=== PATIENT | male | born 1970 | race Caucasian/White ===

== ENCOUNTER 2018-01-10 18:51 | Observation (INO) ==
[2018-01-10 19:50] LABS: Bilirubin,Urine Negative (Negative); Blood,Urine Negative (Negative); Clarity,Urine Cloudy (Clear); Color,Urine Yellow (Yellow); Glucose,Urine (UA) Normal (Normal); Ketones,Urine Negative (Negative); Leukocyte Esterase,Urine Negative (Negative); Nitrite,Urine Negative (Negative); Protein,Urine Negative (Neg-Trace); Specific Gravity,Urine 1.009 (1.010-1.025); Urobilinogen,Urine Normal (Normal)
[2018-01-10 19:52] LABS: Hyaline Casts,Urine None Seen per lpf (None-Few); RBC,Urine 0-3 per hpf (0-3); Squamous Epithelial Cell,Urine Moderate per lpf (None-Few); WBC,Urine 0-3 per hpf (0-3)
[2018-01-10 19:52] LABS: Hematocrit 46.9 % (37.5-50.1); Mean Corpuscular HGB Conc 34.1 g/dL (31.6-35.5); Mean Corpuscular Hemoglobin 29.6 pg (28.0-33.3); Mean Corpuscular Volume 86.9 fL (83.0-100.0); Mean Platelet Volume 10.9 fL (9.4-12.4); Platelet Count 248 K/mcL (140-400); Red Cell Distribution Width 12.2 % (11.5-14.5)
[2018-01-10 20:06] LABS: Amorphous Sediment,Urine Few (Few)
[2018-01-10 20:07] LABS: Bacteria,Urine Few per hpf (None-Few)
--- NOTE | 2018-01-10 20:58 | Emergency Department Note ---
Disposition Clinical Impression: Elevated LFTs, Total bilirubin, elevated Cholelithiasis Qualifiers: Cholelithiasis location: gallbladder Cholecystitis presence: without cholecystitis Biliary obstruction: without biliary obstruction Qualified Code(s) : K80.20 - Calculus of gallbladder without cholecystitis without obstruction Abdominal pain Qualifiers: Abdominal location: epigastric Qualified Code(s): R10.13 - Epigastric pain Disposition: Admitted As Inpatient Condition: Good Time of Disposition: 04:13 Abdominal Pain HPI - General Chief Complaint: ED Abdominal Pain Stated Complaint: Severe ABD Pain Time Seen by Provider: 01/10/18 20:08 Source: patient Mode of arrival: ambulatory Limitations: no limitations Nursing Notes Reviewed: Yes Vital Signs Reviewed: Yes - History of Present Illness HPI Narrative: I have re-performed and reviewed the history documented by the medical student, and I confirm its accuracy except as noted below Patient is a 47-year-old male with past medical history of high cholesterol. He presents today due to epigastric abdominal pain. He states that he started having some epigastric abdominal pain yesterday that lasted for a few hours and then went away. At that time, the pain was sharp in nature and it radiated to his back. Earlier today, the pain returned and has been constant throughout the day. Was rated a 8 or 9-10 is currently rated a 4 out of 10. Describes it as a sharp stabbing pain in the epigastric region that radiates to his back. No radiation anywhere else. He has had some episodes of nausea and vomiting, nonbloody, nonbilious. Denies any other fevers, chest pain, shortness of breath , lower abdominal pain, dysuria, hematuria, testicular pain or swelling. He does admit that he had a few alcoholic drinks over the past 2-3 days at a [employer]. Denies any binge drinking. Denies any history of pancreatitis. Also admits to some mild acid reflux. Denies any previous history of GERD, ulcers, acid reflux. Pain Scale: 6 - Related Data Allergies Allergy/AdvReac Type Severity Reaction Status Date / Time No Known Allergies Allergy Verified 01/10/18 18:59 All systems ED: reviewed and negative except as stated. Abdominal Pain PMH - Past Medical History Medical history: Reports: other Physical Exam - General Limitations: no limitations General appearance: alert, in no apparent distress - Head Head exam: atraumatic, normocephalic, normal inspection - Eye Eye exam: Present: normal appearance, PERRL, EOMI - ENT ENT exam: normal exam, normal oropharynx, mucous membranes moist - Neck Neck exam: Present: normal inspection, full ROM, trachea midline - Chest Chest inspection: Present: normal inspection, symmetric chest wall rise - Respiratory Respiratory exam: Present: normal lung sounds bilaterally - Cardiovascular Cardiovascular exam: Present: regular rate, normal rhythm, normal heart sounds - Abdominal Exam Abdominal exam: Present: soft, tenderness (Mild epigastric tenderness). Absent : distention, guarding, rebound, rigidity, Baker's sign, Rovsing's sign, tenderness at McBurney's Point - Extremities Exam Extremities exam: Present: normal inspection, full ROM. Absent: tenderness, pedal edema - Neurological Exam Neurological exam: Present: alert, oriented X3 - Psychiatric Psychiatric exam: Present: normal affect, normal mood - Skin Skin exam: Present: warm, dry, intact, normal color Course Course Narrative: Vitals show a missed typed heart rate. Heart rate is 61. The rest of vitals within normal limits. Physical exam showed mild epigastric tenderness with deep palpation. Otherwise, the rest of the physical exam was benign. Basic labs ordered including LFTs and lipase. Patient was given Prilosec, GI cocktail. Currently concern for possible mild pancreatitis versus gastritis. Discussed with the patient denied did not feel that the patient needed a CT scan at this time due to the relatively benign abdominal exam. He was agreeable with this plan. Currently waiting on labs. No fluids given as patient has no critical signs of dehydration. 00:07 AST and ALT elevated in the 500s, total bilirubin elevated. Gallbladder ultrasound ordered and shows no evidence of any acute cholecystitis. Proceeded with Tylenol level, hepatitis panel, CT noncontrast of the abdomen and pelvis. Discussed all this with the patient and he was agreeable with this plan. After results, we will admit the patient for further care, recommend GI/surgery consult. 03:59 CT abdomen and pelvis showed bilateral nonobstructing intrarenal calculi, cholelithiasis without evidence of acute cholecystitis, disc herniation at L5- S1 on the right. I talked with Dr. Edwards with surgery, discussed patient presentation, elevated LFTs, elevated total bilirubin, results of the CT scan and gallbladder ultrasound. Hepatitis panel was negative, acetaminophen level negative. Discussed concerns for possible early cholecystitis and for monitoring. He has agreed to be consult. Also recommend that the patient have GI consult as well for further evaluation. Patient will be admitted to medicine for further care. 04:12 Dr. Littlejohn accepted, requested IV abx and cultures. Zosyn and cultures ordered. Recommended monitoring vitals and serial abd exams. Gallbladder Ultrasound 01/10/18 22:17 IMPRESSION: 1. No cholelithiasis or evidence for acute cholecystitis. 2. Nonobstructing right renal calculi. D/ / Bacilio Nicholson MD / Bacilio Nicholson MD Interpreting Provider: Bacilio Nicholson MD Gallbladder Ultrasound 01/10/18 22:17 IMPRESSION: 1. No cholelithiasis or evidence for acute cholecystitis. 2. Nonobstructing right renal calculi. D/ / Bacilio Nicholson MD / Bacilio Nicholson MD Interpreting Provider: Bacilio Nicholsno MD Vital Signs Temperature 97.7 F 01/10/18 18:57 Pulse Rate 671 01/10/18 18:57 Respiratory Rate 15 01/10/18 18:57 Blood Pressure 133/84 01/10/18 18:57 O2 Sat by Pulse Oximetry 98 01/10/18 18:57 Temperature 97.7 F 01/10/18 22:55 Pulse Rate 57 01/11/18 05:04 Respiratory Rate 16 01/11/18 05:04 Blood Pressure 114/70 01/11/18 05:04 O2 Sat by Pulse Oximetry 98 01/11/18 05:18 Oxygen Delivery Oxygen Delivery Room Air Abdominal Pain - MDM Narrative Medical decision making narrative: Vitals show a missed typed heart rate. Heart rate is 61. The rest of vitals within normal limits. Physical exam showed mild epigastric tenderness with deep palpation. Otherwise, the rest of the physical exam was benign. Basic labs ordered including LFTs and lipase. Patient was given Prilosec, GI cocktail. Currently concern for possible mild pancreatitis versus gastritis. Discussed with the patient denied did not feel that the patient needed a CT scan at this time due to the relatively benign abdominal exam. He was agreeable with this plan. Currently waiting on labs. No fluids given as patient has no critical signs of dehydration. 00:07 AST and ALT elevated in the 500s, total bilirubin elevated. Gallbladder ultrasound ordered and shows no evidence of any acute cholecystitis. Proceeded with Tylenol level, hepatitis panel, CT noncontrast of the abdomen and pelvis. Discussed all this with the patient and he was agreeable with this plan. After results, we will admit the patient for further care, recommend GI/surgery consult. 03:59 CT abdomen and pelvis showed bilateral nonobstructing intrarenal calculi, cholelithiasis without evidence of acute cholecystitis, disc herniation at L5- S1 on the right. I talked with Dr. Edwards with surgery, discussed patient presentation, elevated LFTs, elevated total bilirubin, results of the CT scan and gallbladder ultrasound. Hepatitis panel was negative, acetaminophen level negative. Discussed concerns for possible early cholecystitis and for monitoring. He has agreed to be consult. Also recommend that the patient have GI consult as well for further evaluation. Patient will be admitted to medicine for further care. 04:12 Dr. Littlejohn accepted, requested IV abx and cultures. Zosyn and cultures ordered. Recommended monitoring vitals and serial abd exams. - Medical Records Medical records reviewed: Yes I reviewed the patient's medical records. - Lab Data Lab results reviewed: Yes I reviewed the patient's lab results. Result diagrams: 01/10/18 18:59 01/10/18 18:59 Lab Results 01/10/18 01/10/18 01/10/18 Range/Units 18:59 18:59 19:34 WBC 9.8 (4.3-11.1) K/mcL RBC 5.40 (4.19-5.50) M/mcL Hgb 16.0 (12.9-16.9) g/dL Hct 46.9 (37.5-50.1) % MCV 86.9 (83.0-100.0) fL MCH 29.6 (28.0-33.3) pg MCHC 34.1 (31.6-35.5) g/dL RDW 12.2 (11.5-14.5) % Plt Count 248 (140-400) K/mcL MPV 10.9 (9.4-12.4) fL Sodium 143 (136-145) mEq/L Potassium 4.0 (3.5-5.1) mEq/L Chloride 103 (98-107) mEq/L Carbon Dioxide 26 (23-29) mEq/L BUN 13 (6-20) mg/dL Creatinine 0.83 (0.70-1.30) mg/dL Est GFR ( Amer) > 60 (> 60) Est GFR (Non-Af Amer) > 60 (> 60) BUN/Creatinine Ratio 16 (6-26) Glucose 118 H (70-105) mg/dL Calculated Osmolality 297 (280-300) Calcium 9.5 (8.6-10.3) mg/dL Total Bilirubin 2.4 H (0.3-1.0) mg/dL Direct Bilirubin 1.3 H (0.0-0.2) mg/dL Indirect Bilirubin 1.1 (0.0-1.2) mg/dL AST 507 H (13-39) Units/L ALT > 500 H (7-52) Units/L Alkaline Phosphatase 136 H (34-104) Units/L Serum Total Protein 6.7 (6.4-8.9) g/dL Albumin 4.5 (3.5-5.7) g/dL Globulin 2.2 L (2.4-3.5) g/dL Albumin/Globulin Ratio 2.0 (1.1-2.2) Lipase 25 (11-82) Units/L Urine Color Yellow (Yellow) Urine Clarity Cloudy A (Clear) Urine pH 7.0 (5.0-8.0) pH Units Ur Specific G[place]ney 1.009 L (1.010-1.025) Urine Protein Negative (Neg-Trace) mg/dL Urine Glucose (UA) Normal (Normal) mg/dL Urine Ketones Negative (Negative) mg/dL Urine Blood Negative (Negative) Urine Nitrite Negative (Negative) Urine Bilirubin Negative (Negative) Urine Urobilinogen Normal (Normal) mg/dL Ur Leukocyte Esterase Negative (Negative) Urine Microscopic RBC 0-3 (0-3) per hpf Urine Microscopic WBC 0-3 (0-3) per hpf Ur Squamous Epith Cells Moderate H (None-Few) per lpf Amorphous Sediment Few (Few) Urine Bacteria Few (None-Few) per hpf Hyaline Casts None Seen (None-Few) per lpf Acetaminophen (10-20) mcg/mL Hepatitis A IgM Ab (Nonreactive) Hep Bs Antigen (Nonreactive) Hep B Core IgM Ab (Nonreactive) Hepatitis C Ab Screen (Nonreactive) 01/11/18 01/11/18 Range/Units 00:21 00:21 WBC (4.3-11.1) K/mcL RBC (4.19-5.50) M/mcL Hgb (12.9-16.9) g/dL Hct (37.5-50.1) % MCV (83.0-100.0) fL MCH (28.0-33.3) pg MCHC (31.6-35.5) g/dL RDW (11.5-14.5) % Plt Count (140-400) K/mcL MPV (9.4-12.4) fL Sodium (136-145) mEq/L Potassium (3.5-5.1) mEq/L Chloride (98-107) mEq/L Carbon Dioxide (23-29) mEq/L BUN (6-20) mg/dL Creatinine (0.70-1.30) mg/dL Est GFR ( Amer) (> 60) Est GFR (Non-Af Amer) (> 60) BUN/Creatinine Ratio (6-26) Glucose (70-105) mg/dL Calculated Osmolality (280-300) Calcium (8.6-10.3) mg/dL Total Bilirubin (0.3-1.0) mg/dL Direct Bilirubin (0.0-0.2) mg/dL Indirect Bilirubin (0.0-1.2) mg/dL AST (13-39) Units/L ALT (7-52) Units/L Alkaline Phosphatase (34-104) Units/L Serum Total Protein (6.4-8.9) g/dL Albumin (3.5-5.7) g/dL Globulin (2.4-3.5) g/dL Albumin/Globulin Ratio (1.1-2.2) Lipase (11-82) Units/L Urine Color (Yellow) Urine Clarity (Clear) Urine pH (5.0-8.0) pH Units Ur Specific Gaffney (1.010-1.025) Urine Protein (Neg-Trace) mg/dL Urine Glucose (UA) (Normal) mg/dL Urine Ketones (Negative) mg/dL Urine Blood (Negative) Urine Nitrite (Negative) Urine Bilirubin (Negative) Urine Urobilinogen (Normal) mg/dL Ur Leukocyte Esterase (Negative) Urine Microscopic RBC (0-3) per hpf Urine Microscopic WBC (0-3) per hpf Ur Squamous Epith Cells (None-Few) per lpf Amorphous Sediment (Few) Urine Bacteria (None-Few) per hpf Hyaline Casts (None-Few) per lpf Acetaminophen < 10 L (10-20) mcg/mL Hepatitis A IgM Ab Nonreactive (Nonreactive) Hep Bs Antigen Nonreactive (Nonreactive) Hep B Core IgM Ab Nonreactive (Nonreactive) Hepatitis C Ab Screen Nonreactive (Nonreactive) - Radiology Data Radiology results reviewed: Yes I reviewed the patient's radiology results. Gallbladder Ultrasound 01/10/18 22:17 IMPRESSION: 1. No cholelithiasis or evidence for acute cholecystitis. 2. Nonobstructing right renal calculi. D/ / Bacilio Nicholson MD / Bacilio Nicholson MD Interpreting Provider: Bacilio Nicholson MD S.B.A.R. - S.B.A.R. Situation: Demographics, MOA Background: Presenting Complaint, Relevant PMH, Meds, & Allergies Assessment: Vital Signs, Course and respsone to treatment, Exam Concerns, Patient/Family Expectation, Pertinant Lab Results Recommendation: Barrier(s) to disposition, Recommendation based on pending studies, treatments, or consults S.B.A.R. Report Given to: Attestation Statement - Attestation Attestation: I examined this patient and my medical decision-making was reviewed with the Resident Physician. I agree with the documented findings, disposition and treatment plan as described except to the extent set forth below. Transaminitis , abdominal pain. We will admit for serial LFTs, abdominal examination's comes surgical consultation.
[2018-01-10] MEDS ORDERED: GI Cocktail 40 ML EACH PO ONE (21:07)
[2018-01-10] MEDS ORDERED: Pantoprazole 40 MG VIAL IVP ONE (21:07)
--- NOTE | 2018-01-10 21:16 | Emergency Department Note ---
Disposition Clinical Impression: Elevated LFTs, Total bilirubin, elevated Cholelithiasis Qualifiers: Cholelithiasis location: gallbladder Cholecystitis presence: without cholecystitis Biliary obstruction: without biliary obstruction Qualified Code(s) : K80.20 - Calculus of gallbladder without cholecystitis without obstruction Disposition: Admitted As Inpatient Condition: Good Referrals: Mahesh Villar DO [Primary Care Provider] - Heidy Gonzalez [Family Provider] - Forms: ED Satisfaction Letter, Work/School Release Abdominal Pain HPI - General Chief Complaint: ED Abdominal Pain Stated Complaint: Severe ABD Pain Time Seen by Provider: 01/10/18 20:08 Source: patient Mode of arrival: ambulatory Limitations: no limitations Vital Signs Reviewed: Yes - History of Present Illness HPI Narrative: 47 y.o. male presents c/o 2 episodes of sudden onset 6/10 upper abd pain upon awakening x 2 days. He states the episode yesterday began at 5am and lasted approximately 4 hours. Today the pain has lasted throughout the day and is currently a 3/10. He describes it as achy and radiating through to his back. He reports associated nausea, but no other relates symptoms. He denies any exacerbating or relieving factors. He notes he was drinking at a new [employer] the past few days. He denies any trauma or other exposures. He denies any personal history of cardiac issues. Pt Subjective Complaint: abdominal pain Onset (ago): day(s) (2) Location: epigastric Pain Scale: 6 Quality: aching Radiation: back Migration to: no migration Improves with: nothing Worsens with: nothing Associated symptoms: Reports: nausea. Denies: vomiting, diarrhea, fever, chills , constipation, dysuria, hematemesis, hematochezia, melena, hematuria Treatments prior to arrival: none - Related Data Allergies Allergy/AdvReac Type Severity Reaction Status Date / Time No Known Allergies Allergy Verified 01/10/18 18:59 Constitutional: Denies: fever, chills Cardiovascular: Denies: chest pain, palpitations, dyspnea on exertion, edema Respiratory: Denies: cough, dyspnea, wheezes Gastrointestinal: Reports: abdominal pain, nausea. Denies: vomiting, diarrhea, constipation, hematemesis, melena, hematochezia Genitourinary: Denies: urgency, dysuria, frequency, hematuria Abdominal Pain PMH - Social History Smoking status: Former smoker Alcohol use: Reports: occasionally Drug use: Reports: none Physical Exam - General Limitations: no limitations General appearance: alert, in no apparent distress - Head Head exam: atraumatic, normocephalic - Eye Eye exam: Present: normal appearance, EOMI. Absent: scleral icterus, conjunctival injection - Neck Neck exam: Present: normal inspection, full ROM. Absent: tenderness, lymphadenopathy - Chest Chest inspection: Present: normal inspection. Absent: tenderness, rash - Respiratory Respiratory exam: Present: normal lung sounds bilaterally. Absent: respiratory distress, wheezes, accessory muscle use - Cardiovascular Cardiovascular exam: Present: regular rate, normal rhythm, +S1, +S2. Absent: systolic murmur - Abdominal Exam Abdominal exam: Present: soft, tenderness, normal bowel sounds. Absent: distention, guarding, rebound, rigidity, trauma, Baker's sign, mass Abdominal tenderness: Present: epigastrium - Back Exam Back exam: Present: normal inspection. Absent: tenderness, CVA tenderness (L) - Neurological Exam Neurological exam: Present: alert, oriented X3 - Psychiatric Psychiatric exam: Present: normal affect, normal mood - Skin Skin exam: Present: warm, dry, intact Course Vital Signs Temperature 97.7 F 01/10/18 18:57 Pulse Rate 671 01/10/18 18:57 Respiratory Rate 15 01/10/18 18:57 Blood Pressure 133/84 01/10/18 18:57 O2 Sat by Pulse Oximetry 98 01/10/18 18:57 Temperature 97.7 F 01/10/18 22:55 Pulse Rate 61 01/10/18 23:51 Respiratory Rate 16 01/10/18 23:51 Blood Pressure 125/89 01/10/18 23:51 O2 Sat by Pulse Oximetry 95 01/10/18 23:51 Oxygen Delivery Oxygen Delivery Room Air Abdominal Pain - Lab Data Result diagrams: 01/10/18 18:59 01/10/18 18:59 Lab Results 01/10/18 01/10/18 01/10/18 Range/Units 18:59 18:59 19:34 WBC 9.8 (4.3-11.1) K/mcL RBC 5.40 (4.19-5.50) M/mcL Hgb 16.0 (12.9-16.9) g/dL Hct 46.9 (37.5-50.1) % MCV 86.9 (83.0-100.0) fL MCH 29.6 (28.0-33.3) pg MCHC 34.1 (31.6-35.5) g/dL RDW 12.2 (11.5-14.5) % Plt Count 248 (140-400) K/mcL MPV 10.9 (9.4-12.4) fL Sodium 143 (136-145) mEq/L Potassium 4.0 (3.5-5.1) mEq/L Chloride 103 (98-107) mEq/L Carbon Dioxide 26 (23-29) mEq/L BUN 13 (6-20) mg/dL Creatinine 0.83 (0.70-1.30) mg/dL Est GFR ( Amer) > 60 (> 60) Est GFR (Non-Af Amer) > 60 (> 60) BUN/Creatinine Ratio 16 (6-26) Glucose 118 H (70-105) mg/dL Calculated Osmolality 297 (280-300) Calcium 9.5 (8.6-10.3) mg/dL Total Bilirubin 2.4 H (0.3-1.0) mg/dL Direct Bilirubin 1.3 H (0.0-0.2) mg/dL Indirect Bilirubin 1.1 (0.0-1.2) mg/dL AST 507 H (13-39) Units/L ALT > 500 H (7-52) Units/L Alkaline Phosphatase 136 H (34-104) Units/L Serum Total Protein 6.7 (6.4-8.9) g/dL Albumin 4.5 (3.5-5.7) g/dL Globulin 2.2 L (2.4-3.5) g/dL Albumin/Globulin Ratio 2.0 (1.1-2.2) Lipase 25 (11-82) Units/L Urine Color Yellow (Yellow) Urine Clarity Cloudy A (Clear) Urine pH 7.0 (5.0-8.0) pH Units Ur Specific War 1.009 L (1.010-1.025) Urine Protein Negative (Neg-Trace) mg/dL Urine Glucose (UA) Normal (Normal) mg/dL Urine Ketones Negative (Negative) mg/dL Urine Blood Negative (Negative) Urine Nitrite Negative (Negative) Urine Bilirubin Negative (Negative) Urine Urobilinogen Normal (Normal) mg/dL Ur Leukocyte Esterase Negative (Negative) Urine Microscopic RBC 0-3 (0-3) per hpf Urine Microscopic WBC 0-3 (0-3) per hpf Ur Squamous Epith Cells Moderate H (None-Few) per lpf Amorphous Sediment Few (Few) Urine Bacteria Few (None-Few) per hpf Hyaline Casts None Seen (None-Few) per lpf Acetaminophen (10-20) mcg/mL Hepatitis A IgM Ab (Nonreactive) Hep Bs Antigen (Nonreactive) Hep B Core IgM Ab (Nonreactive) Hepatitis C Ab Screen (Nonreactive) 01/11/18 01/11/18 Range/Units 00:21 00:21 WBC (4.3-11.1) K/mcL RBC (4.19-5.50) M/mcL Hgb (12.9-16.9) g/dL Hct (37.5-50.1) % MCV (83.0-100.0) fL MCH (28.0-33.3) pg MCHC (31.6-35.5) g/dL RDW (11.5-14.5) % Plt Count (140-400) K/mcL MPV (9.4-12.4) fL Sodium (136-145) mEq/L Potassium (3.5-5.1) mEq/L Chloride (98-107) mEq/L Carbon Dioxide (23-29) mEq/L BUN (6-20) mg/dL Creatinine (0.70-1.30) mg/dL Est GFR ( Amer) (> 60) Est GFR (Non-Af Amer) (> 60) BUN/Creatinine Ratio (6-26) Glucose (70-105) mg/dL Calculated Osmolality (280-300) Calcium (8.6-10.3) mg/dL Total Bilirubin (0.3-1.0) mg/dL Direct Bilirubin (0.0-0.2) mg/dL Indirect Bilirubin (0.0-1.2) mg/dL AST (13-39) Units/L ALT (7-52) Units/L Alkaline Phosphatase (34-104) Units/L Serum Total Protein (6.4-8.9) g/dL Albumin (3.5-5.7) g/dL Globulin (2.4-3.5) g/dL Albumin/Globulin Ratio (1.1-2.2) Lipase (11-82) Units/L Urine Color (Yellow) Urine Clarity (Clear) Urine pH (5.0-8.0) pH Units Ur Specific War (1.010-1.025) Urine Protein (Neg-Trace) mg/dL Urine Glucose (UA) (Normal) mg/dL Urine Ketones (Negative) mg/dL Urine Blood (Negative) Urine Nitrite (Negative) Urine Bilirubin (Negative) Urine Urobilinogen (Normal) mg/dL Ur Leukocyte Esterase (Negative) Urine Microscopic RBC (0-3) per hpf Urine Microscopic WBC (0-3) per hpf Ur Squamous Epith Cells (None-Few) per lpf Amorphous Sediment (Few) Urine Bacteria (None-Few) per hpf Hyaline Casts (None-Few) per lpf Acetaminophen < 10 L (10-20) mcg/mL Hepatitis A IgM Ab Nonreactive (Nonreactive) Hep Bs Antigen Nonreactive (Nonreactive) Hep B Core IgM Ab Nonreactive (Nonreactive) Hepatitis C Ab Screen Nonreactive (Nonreactive)
[2018-01-10 21:35] LABS: Chloride 103 mEq/L (98-107); Sodium 143 mEq/L (136-145)
[2018-01-10 22:12] LABS: Alanine Aminotransferase > 500 Units/L (7-52); Albumin 4.5 g/dL (3.5-5.7); Alkaline Phosphatase 136 Units/L (34-104); Aspartate Amino Transferase 507 Units/L (13-39); BUN/Creatinine Ratio 16 (6-26); Bilirubin,Direct 1.3 mg/dL (0.0-0.2); Bilirubin,Indirect 1.1 mg/dL (0.0-1.2); Bilirubin,Total 2.4 mg/dL (0.3-1.0); Blood Urea Nitrogen 13 mg/dL (6-20); Calcium 9.5 mg/dL (8.6-10.3); Carbon Dioxide 26 mEq/L (23-29); Globulin 2.2 g/dL (2.4-3.5); Glucose 118 mg/dL (70-105); Lipase 25 Units/L (11-82); Osmolality,Calculated 297 (280-300); Total Protein 6.7 g/dL (6.4-8.9); eGFR For Non-African Americans > 60 (> 60)
[2018-01-11 02:50] LABS: Hepatitis A Antibody IgM Nonreactive (Nonreactive); Hepatitis B Core IgM Nonreactive (Nonreactive); Hepatitis B Surface Antigen Nonreactive (Nonreactive); Hepatitis C Virus Antibody Nonreactive (Nonreactive)
[2018-01-11] MEDS ORDERED: Piperacillin/Tazobactam 3.375 GM in 0.9 % Sodium Chloride Mini Bag 100 ML IVPB ONE (04:11)
[2018-01-11] MEDS ORDERED: Naloxone 0.4 MG/ML INJ IVP PRN (07:56)
[2018-01-11] MEDS ORDERED: Gadolinium Contrast Agent (WT Based) IV PRN (07:58)
[2018-01-11] MEDS ORDERED: 0.9 % Sodium Chloride 1,000 ML IVC SCH (08:00)
--- NOTE | 2018-01-11 08:23 | Internal Med History&Physical ---
Date of Encounter: 01/11/18 Time of Encounter: 08:14 Internal Medicine - H&P: HPI Chief complaint: Abdominal pain Admitted From: Home Plans for Post Hospital Care: Home History of present illness: Mr. White is a 47 year old male with PMH of HLD on Crestor, occasional alcohol use, who presented to the ER last night with epigastric and RUQ abdominal pain. He reports being in his usual state of health till 2 days prior to presentation when he developed sudden sharp abdominal pain that was radiating to the RUQ and back, 7/10 and not associated with meals, no nausea or vomiting. He denies fever or chills. No known aggravating or relieving factors. His pain resolved spontaneoulsy but recurred yesterday prompting him to present to the ER He denies changes in bowel habits, no new or illicit drug use, no muscle aches, no recent strenous exercises, he exercises daily and has not increased his exercises He denies hematemesis or melena. No BRBPR He denies chest pain, SOB, Cough or ankle swelling The patient reports taking 2beers a day prior to onset of symptoms, he is also on crestor for HLD There has been no new medications given to him by his PCP, there has been no changes in dosing, he reports having annual LFTS due to his statin use and has always been normal Work up in ER showed transaminitis, with direct hyperbilrubinemia, CBC is unremarkable,lipase is WNL and abdominal pain has resolved at time of review Gall bladder USS ruled out cholecystitis, no cholelithiasis, non-obstructing renal calculi was seen Abdomen CT showed cholelithiasis without cholecystitis, and bilateral non- obstructing renal calculi The patient is in no form of distress at my time of review He will be placed on observation for work up for transaminitis, he is clinically and hemodynamically stable at this time Past Med Surg Social Fam HX - Past Medical History Medical history: other (HLD) Psychiatric history: no psych history - Social History Smoking Status: Former smoker Smokeless Tobacco Status: No Alcohol use: occasionally Drug use: none Internal Medicine - H&P: Meds Rosuvastatin [Crestor] 20 mg PO HS 01/11/18 [History] 3 Allergy/AdvReac Type Severity Reaction Status Date / Time No Known Allergies Allergy Verified 01/10/18 18:59 All Systems PM: A 10-system review of systems was performed and is negative for pertinent findings except as documented above in the HPI. - Constitutional Constitutional: as per HPI - EENT Eyes: as per HPI Ears: as per HPI Nose, mouth and throat: as per HPI - Cardiovascular Cardiovascular ROS IM: as per HPI - Respiratory Respiratory: as per HPI - Gastrointestinal Gastrointestinal: as per HPI - Musculoskeletal Musculoskeletal ROS IM: as per HPI - Integumentary Integumentary IM: as per HPI - Neurological Neurological ROS: as per HPI - Hematologic/Lymphatic Hematologic/Lymphatic: as per HPI - Constitutional Vitals: Temp Pulse Resp BP Pulse Ox 97.7 F 57 16 114/70 98 01/10/18 22:55 01/11/18 05:04 01/11/18 05:04 01/11/18 05:04 01/11/18 05:18 General appearance: Present: A&O X 3, pleasant, no acute distress Exam: See detailed exam below - Head Head exam: Present: atraumatic, normocephalic - Eye Eye exam: Present: PERRL, conjuntiva pink, sclera anicteric Pupils: Present: PERRL - Neck Neck exam general surgery: Present: supple, trachea midline. Absent: lymphadenopathy - Respiratory Respiratory exam: Present: CTAB. Absent: accessory muscle use, rales, rhonchi, wheezes - Cardiovascular Cardiovascular exam: Present: RRR, +S1, +S2. Absent: diastolic murmur, gallop, rubs, systolic murmur - GI/Abdominal GI/Abdominal exam: Present: normal bowel sounds, soft, no peritoneal signs. Absent: distended, tenderness - Extremities Exam Extremities exam: Present: warm, radial pulses palpable and symmetrical. Absent : calf tenderness, cyanotic, pedal edema - Neurological Exam Neurological exam: Present: alert, CN II-XII intact, oriented X3, no focal deficits. Absent: pronater drift, facial droop, speech deficit - Skin Skin exam: Present: dry, intact Internal Med - H&P Results - Labs CBC & Chem 7: 01/11/18 08:38 01/11/18 08:38 - Assessment and plan (1) Transaminitis Current Visit: Yes Status: Acute Assessment and plan: Differentials include-Due to statin with alcohol use, choledocholithiasis, No evidence of cholecystitis on physical exam or imaging Received Zosyn in ER, will discontinued, no indication at this time Hold home dose of Crestor Hepatitis panel is negative-A, B, C UA negative with no hematuria No muscle pain, no rhabdo Obtain MRCP STAT GI and surgery consulted by ED< I do not believe this patient has a surgical abdomen, abdomen exam is benign Clear liquid diet as tolerated, will follow IVF hydration (2) Hyperbilirubinemia Current Visit: Yes Status: Acute Assessment and plan: as above IVF hydration (3) Abdominal pain Current Visit: Yes Status: Acute Assessment and plan: Management as in transaminitis Pain has resolved at this time Avoid NSAIDs Tramadol prn for mild-moderate pain Qualifiers: Abdominal location: epigastric Qualified Code(s): R10.13 - Epigastric pain (4) HLD (hyperlipidemia) Current Visit: Yes Status: Chronic Assessment and plan: Hold home Crestor due to transaminitis Qualifiers: Hyperlipidemia type: unspecified Qualified Code(s): E78.5 - Hyperlipidemia , unspecified - Time Spent With Patient Total time spent is greater than 50% in coordination of care (as documented) at patient's floor/unit and/or counseling patient:
[2018-01-11 08:53] LABS: Hematocrit 49.5 % (37.5-50.1); Hemoglobin 16.7 g/dL (12.9-16.9); Mean Corpuscular HGB Conc 33.7 g/dL (31.6-35.5); Mean Corpuscular Hemoglobin 29.7 pg (28.0-33.3); Mean Corpuscular Volume 87.9 fL (83.0-100.0); Mean Platelet Volume 11.2 fL (9.4-12.4); Platelet Count 232 K/mcL (140-400); Red Blood Count 5.63 M/mcL (4.19-5.50); Red Cell Distribution Width 12.1 % (11.5-14.5)
[2018-01-11 08:59] LABS: Prothrombin Time 11.6 Seconds (9.4-12.1)
--- NOTE | 2018-01-11 09:00 | General Surgery Consult Note ---
<Wilfred Carlin R - Last Filed: 01/11/18 10:50> Date of Encounter: 01/11/18 Time of Encounter: 08:53 Assessment and Plan (1) Abdominal pain Current Visit: Yes Status: Acute Patient examined diagnostic findings are not consistent with acute cholecystitis , however does have cholelithiasis. Laboratory findings in exam findings would be consistent with acute alcoholic hepatitis, hepatitis panel negative Plan: Comfort care and pain management for acute abdominal pain MRCP is pending at this time Clear liquid diet if tolerating IV fluids Avoidance of hepatotoxic drugs Will sign off on patient, follow up with Dr. Edwards on Tuesday in outpatient clinic 01/16/2018 at 9:40 AM Qualifiers: Abdominal location: epigastric Qualified Code(s): R10.13 - Epigastric pain History of Present Illness Consult date: 01/11/18 (Dr. Edwards) Reason for consult: abdominal pain Requesting physician: Wilfred Bahena History of present illness: Mr. White is a 39-year-old male with history of hyperlipidemia, alcohol use the presented to the ED last night for evaluation of RUQ and epigastric pain. Patient states that 2 days ago he developed sudden onset, sharp, 7/10 in severity abdominal pain. This pain did radiate to his right upper quadrant. He has not identified a trigger or cause. The pain does self resolve does return. He has felt nauseated as well as describes non-bilious vomiting. Denies change in bowel habits, hematochezia, hematemesis, fevers, chest pain, shortness of breath. He admits to drinking several beers over the past couple of days, denies binge drinking history. Gallbladder ultrasound without evidence of acute cholecystitis. Abdominal CT findings were consistent in demonstrating cholelithiasis without acute cholecystitis, as well as demonstrating bilateral intrarenal calculi which were nonobstructive. Patient does take Crestor and states that routine lab checks and LFTs are within normal limits in the past. Workup in the ED did reveal elevated AST, ALT. Patient presently feels well, no pain, no distress, would like to drink and eat. Past Med Surg Social Fam HX - Past Medical History Medical history: other (HLD) Psychiatric history: no psych history - Social History Smoking Status: Former smoker Smokeless Tobacco Status: No Alcohol use: occasionally Drug use: none Medications and Allergies Rosuvastatin [Crestor] 20 mg PO HS 01/11/18 [History] 3 Allergy/AdvReac Type Severity Reaction Status Date / Time No Known Allergies Allergy Verified 01/10/18 18:59 Review of Systems All systems PM: The remainder of the systems were reviewed and are negative - Gastrointestinal abdominal pain (Right upper quadrant, epigastric) General Surgery Exam Initial Vital Signs Temp Pulse Resp BP Pulse Ox 97.7 F 671 15 133/84 98 01/10/18 18:57 01/10/18 18:57 01/10/18 18:57 01/10/18 18:57 01/10/18 18:57 - General physical appearance well nourished, no distress, no pain - Eyes PERRL, normal ocular movement - ENT normal mucosa, atraumatic, normocephalic - Neck trachea midline - Respiratory normal expansion, clear to auscultation - Cardiovascular Cardiovascular exam: Present: RRR - Abdomen Abdomen general surgery: Present: bowel sounds present, soft, non tender. Absent: distended, guarding, rebound - Integumentary Integumentary general surgery: Present: warm and dry - Neurologic Present: CN 2-12 grossly intact - Musculoskeletal Present: normal posture - Psychiatric Psychiatric general surgery: Present: A&Ox3, speech is normal Exam Initial Vital Signs Temp Pulse Resp BP Pulse Ox 97.7 F 671 15 133/84 98 01/10/18 18:57 01/10/18 18:57 01/10/18 18:57 01/10/18 18:57 01/10/18 18:57 Results - Labs 01/11/18 08:38 01/11/18 08:38 Abnormal lab results Glucose 118 mg/dL (70-105) H 01/10/18 18:59 Total Bilirubin 2.4 mg/dL (0.3-1.0) H 01/10/18 18:59 Direct Bilirubin 1.3 mg/dL (0.0-0.2) H 01/10/18 18:59 AST 507 Units/L (13-39) H 01/10/18 18:59 ALT > 500 Units/L (7-52) H 01/10/18 18:59 Alkaline Phosphatase 136 Units/L (34-104) H 01/10/18 18:59 Globulin 2.2 g/dL (2.4-3.5) L 01/10/18 18:59 Urine Clarity Cloudy (Clear) A 01/10/18 19:34 Ur Specific [place] 1.009 (1.010-1.025) L 01/10/18 19:34 Ur Squamous Epith Cells Moderate per lpf (None-Few) H 01/10/18 19:34 Acetaminophen < 10 mcg/mL (10-20) L 01/11/18 00:21 All other labs normal. Consult Discharge Plan - Plan Referrals: Mahesh Villar DO [Primary Care Provider] - Heidy Gonzalez [Family Provider] - Vinny Edwards MD [Non-Partnered Physician] - 01/16/18 9:40 am <Vinny Edwards - Last Filed: 01/11/18 12:27> Date of Encounter: 01/11/18 Review of Systems All systems PM: The remainder of the systems were reviewed and are negative General Surgery Exam Initial Vital Signs Temp Pulse Resp BP Pulse Ox 97.7 F 671 15 133/84 98 01/10/18 18:57 01/10/18 18:57 01/10/18 18:57 01/10/18 18:57 01/10/18 18:57 Exam Initial Vital Signs Temp Pulse Resp BP Pulse Ox 97.7 F 671 15 133/84 98 01/10/18 18:57 01/10/18 18:57 01/10/18 18:57 01/10/18 18:57 01/10/18 18:57 Results - Labs 01/11/18 08:38 01/11/18 08:38 Abnormal lab results RBC 5.63 M/mcL (4.19-5.50) H 01/11/18 08:38 Glucose 119 mg/dL (70-105) H 01/11/18 08:38 Total Bilirubin 1.7 mg/dL (0.3-1.0) H 01/11/18 08:38 Direct Bilirubin 1.3 mg/dL (0.0-0.2) H 01/10/18 18:59 AST 281 Units/L (13-39) H 01/11/18 08:38 ALT > 500 Units/L (7-52) H 01/11/18 08:38 Alkaline Phosphatase 175 Units/L (34-104) H 01/11/18 08:38 Globulin 2.2 g/dL (2.4-3.5) L 01/11/18 08:38 Urine Clarity Cloudy (Clear) A 01/10/18 19:34 Ur Specific [place] 1.009 (1.010-1.025) L 01/10/18 19:34 Ur Squamous Epith Cells Moderate per lpf (None-Few) H 01/10/18 19:34 Acetaminophen < 10 mcg/mL (10-20) L 01/11/18 00:21 Diabetes panel 01/11/18 Range/Units 08:38 Sodium 139 (136-145) mEq/L Potassium 4.0 (3.5-5.1) mEq/L Chloride 107 (98-107) mEq/L Carbon Dioxide 25 (23-29) mEq/L BUN 12 (6-20) mg/dL Creatinine 0.85 (0.70-1.30) mg/dL Glucose 119 H (70-105) mg/dL Calcium 9.0 (8.6-10.3) mg/dL AST 281 H (13-39) Units/L ALT > 500 H (7-52) Units/L Alkaline Phosphatase 175 H (34-104) Units/L Albumin 4.4 (3.5-5.7) g/dL Calcium panel 01/11/18 Range/Units 08:38 Calcium 9.0 (8.6-10.3) mg/dL Albumin 4.4 (3.5-5.7) g/dL Pituitary panel 01/11/18 Range/Units 08:38 Sodium 139 (136-145) mEq/L Potassium 4.0 (3.5-5.1) mEq/L Chloride 107 (98-107) mEq/L Carbon Dioxide 25 (23-29) mEq/L BUN 12 (6-20) mg/dL Creatinine 0.85 (0.70-1.30) mg/dL Glucose 119 H (70-105) mg/dL Calcium 9.0 (8.6-10.3) mg/dL Adrenal panel 01/11/18 Range/Units 08:38 Sodium 139 (136-145) mEq/L Potassium 4.0 (3.5-5.1) mEq/L Chloride 107 (98-107) mEq/L Carbon Dioxide 25 (23-29) mEq/L BUN 12 (6-20) mg/dL Creatinine 0.85 (0.70-1.30) mg/dL Glucose 119 H (70-105) mg/dL Calcium 9.0 (8.6-10.3) mg/dL Total Bilirubin 1.7 H (0.3-1.0) mg/dL AST 281 H (13-39) Units/L ALT > 500 H (7-52) Units/L Alkaline Phosphatase 175 H (34-104) Units/L Albumin 4.4 (3.5-5.7) g/dL All other labs normal. - Attending Attestation I have personally seen and examined the patient. I have reviewed pertinent labs , imaging, progress notes, including this one. I agree with the above assessment and plan and wish to include the following... 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
[2018-01-11 09:14] LABS: Alanine Aminotransferase > 500 Units/L (7-52); Albumin 4.4 g/dL (3.5-5.7); Alkaline Phosphatase 175 Units/L (34-104); Aspartate Amino Transferase 281 Units/L (13-39); BUN/Creatinine Ratio 14 (6-26); Bilirubin,Total 1.7 mg/dL (0.3-1.0); Blood Urea Nitrogen 12 mg/dL (6-20); Carbon Dioxide 25 mEq/L (23-29); Chloride 107 mEq/L (98-107); Globulin 2.2 g/dL (2.4-3.5); Glucose 119 mg/dL (70-105); Osmolality,Calculated 289 (280-300); Sodium 139 mEq/L (136-145); Total Protein 6.6 g/dL (6.4-8.9); eGFR For Non-African Americans > 60 (> 60)
--- NOTE | 2018-01-11 11:55 | Gastroenterology Consult Note ---
<Heri Chavez - Last Filed: 01/11/18 12:15> Date of Encounter: 01/11/18 Time of Encounter: 11:40 - Assessment and plan (1) Abdominal pain Current Visit: Yes Status: Acute Assessment and plan: Concern for choledocholithiasis. Lipase was within normal limits. Hepatitis profile was negative. Complete stat MRCP. On admission total bili 2.4, AST 507, ALT >500. Today total bili 1.7, AST 281, ALT >500. Patient may have passed stone. Qualifiers: Abdominal location: epigastric Qualified Code(s): R10.13 - Epigastric pain (2) Elevated LFTs Current Visit: Yes Status: Acute Assessment and plan: As above. (3) Total bilirubin, elevated Current Visit: Yes Status: Acute Assessment and plan: As above. (4) Cholelithiasis Current Visit: Yes Status: Acute Qualifiers: Cholelithiasis location: gallbladder Cholecystitis presence: without cholecystitis Biliary obstruction: without biliary obstruction Qualified Code(s): K80.20 - Calculus of gallbladder without cholecystitis without obstruction - Time Spent With Patient Total time spent is greater than 50% in coordination of care (as documented) at patient's floor/unit and/or counseling patient: GI History of Present Illness - Data of Consult Patient: new to practice Consult date: 01/11/18 Requesting Physician: Daniel Littlejohn MD - Consult Narrative Reason for consult: Elevated LFTs, epigastric pain History of present illness: Mr. White is a 47 year old male with PMHx of HLD and occasional alcohol use who presented to the ED with c/o epigastric and RUQ pain. He reports being in his usual state of health till 2 days prior to presentation when he developed sudden sharp abdominal pain that was radiating to the RUQ and back, 7/10 and not associated with meals. His pain resolved spontaneoulsy but recurred yesterday prompting him to present to the ER. No fevers, chills, chest pain, SOB , nausea, vomiting, hematemesis, melena, or hematochezia. RUQ US with no cholelithiasis or cholecystitis, and non-obstructing renal calculi was seen. CT A/P showed cholelithiasis without cholecystitis, and bilateral non-obstructing renal calculi. Admission labs showed transaminitis with AST 507 and ALT >500, hyperbilirubinemia with TB 2.4 with DB 1.3. Lipase was within normal limits. Hepatitis profile was negative. Procedures: None NSAIDs: None Anticoagulation: None Past Med Surg Social Fam HX - Past Medical History Medical history: other (HLD) Psychiatric history: no psych history - Social History Smoking Status: Former smoker Smokeless Tobacco Status: No Alcohol use: occasionally Drug use: none - Gastrointestinal Gastrointestinal: Present: as per HPI - Constitutional Constitutional: as per HPI - EENT Eyes: as per HPI Ears: Present: as per HPI Nose, mouth and throat: Present: as per HPI - Cardiovascular Cardiovascular ROS: Present: as per HPI - Respiratory Respiratory IM: Present: as per HPI - Genitourinary Genitourinary: Absent: change in color, Urinary frequency - Neurological ROS Neurological GI: Present: as per HPI - Hematologic/Lymphatic Hematologic/Lymphatic pediatric: Present: as per HPI - Musculoskeletal Musculoskeletal ROS GI: Present: as per HPI - Integumentary Integumentary GI: Present: as per HPI - Psychiatric ROS Psychiatric GI: Present: as per HPI - Endocrine Endocrine IM: Present: as per HPI - Constitutional Vitals: Temp Pulse Resp BP Pulse Ox 98.3 F 56 15 108/61 97 01/11/18 11:50 01/11/18 11:50 01/11/18 11:50 01/11/18 11:50 01/11/18 11:50 General appearance: Present: cooperative, A&O X 3, no acute distress, answers questions appropriately - Head Head exam: Present: atraumatic, normocephalic - Eye Eye exam: Present: normal appearance, sclera anicteric - ENT ENT exam: Present: mucous membranes dry - Neck Neck exam general surgery: Present: normal inspection, trachea midline - Respiratory Respiratory exam: Present: CTAB. Absent: decreased breath sounds, rales, rhonchi - Cardiovascular Cardiovascular exam: Present: RRR, +S1, +S2 - GI/Abdominal GI/Abdominal exam: Present: normal bowel sounds, soft, no peritoneal signs. Absent: distended, firm, guarding, tenderness - Rectal Rectal exam: Present: deferred - Extremities Exam Extremities exam: Present: warm - Neurological Exam Neurological exam: Present: no focal deficits - Psychiatric Psychiatric exam: Present: normal affect, normal mood - Skin Skin exam: Present: dry, intact, normal color, warm Results - Labs CBC & Chem 7: 01/11/18 08:38 01/11/18 08:38 Labs: Last Result Calcium 9.0 mg/dL (8.6-10.3) 01/11/18 08:38 Entire Visit Hgb 16.7 g/dL (12.9-16.9) 01/11/18 08:38 Hct 49.5 % (37.5-50.1) 01/11/18 08:38 PT 11.6 Seconds (9.4-12.1) 01/11/18 08:38 Total Bilirubin 1.7 mg/dL (0.3-1.0) H 01/11/18 08:38 AST 281 Units/L (13-39) H 01/11/18 08:38 ALT > 500 Units/L (7-52) H 01/11/18 08:38 Lipase 25 Units/L (11-82) 01/10/18 18:59 Acetaminophen < 10 mcg/mL (10-20) L 01/11/18 00:21 - ABG ABG results: PT/INR, D-dimer PT 11.6 Seconds (9.4-12.1) 01/11/18 08:38 - Impressions Impressions Abdomen MRI 01/11/18 07:58 IMPRESSION: 1. No acute abnormality. D/ / Gonsalo Rivas MD / Gonsalo Rivas MD Interpreting Provider: Gonsalo Rivas MD Consult Discharge Plan - Plan Instructions: Cholecystitis (DC), Gallstones (DC) Referrals: Vinny Edwards MD [Non-Partnered Physician] - 01/16/18 9:40 am Mahesh Villar DO [Primary Care Provider] - Heidy Gonzalez [Family Provider] - <Kitty Santiago - Last Filed: 01/11/18 17:44> Date of Encounter: 01/11/18 Time of Encounter: 17:00 - Time Spent With Patient Total time spent is greater than 50% in coordination of care (as documented) at patient's floor/unit and/or counseling patient: GI History of Present Illness - Data of Consult Requesting Physician: Daniel Littlejohn MD - Consult Narrative History of present illness: Mr. White is a 47 year old male - Constitutional Vitals: Temp Pulse Resp BP Pulse Ox 98.6 F 58 15 97/63 98 01/11/18 16:00 01/11/18 16:00 01/11/18 16:00 01/11/18 16:00 01/11/18 16:00 Results - Labs CBC & Chem 7: 01/11/18 08:38 01/11/18 08:38 Labs: Last Result Calcium 9.0 mg/dL (8.6-10.3) 01/11/18 08:38 Entire Visit Hgb 16.7 g/dL (12.9-16.9) 01/11/18 08:38 Hct 49.5 % (37.5-50.1) 01/11/18 08:38 PT 11.6 Seconds (9.4-12.1) 01/11/18 08:38 Total Bilirubin 1.7 mg/dL (0.3-1.0) H 01/11/18 08:38 AST 281 Units/L (13-39) H 01/11/18 08:38 ALT > 500 Units/L (7-52) H 01/11/18 08:38 Lipase 25 Units/L (11-82) 01/10/18 18:59 Acetaminophen < 10 mcg/mL (10-20) L 01/11/18 00:21 - ABG ABG results: PT/INR, D-dimer PT 11.6 Seconds (9.4-12.1) 01/11/18 08:38 - Impressions Impressions Abdomen MRI 01/11/18 07:58 IMPRESSION: 1. No acute abnormality. D/ / Gonsalo Rivas MD / Gonsalo Rivas MD Interpreting Provider: Gonsalo Rivas MD - Attending Attestation I have personally performed a face to face evaluation on this patient. I have reviewed and agree with the care plan. History and Exam by me shows: Patient seen at the bedside in the ER. Denies any abdominal pain on examination abdomen is soft. Assessment abnormal LFTs most probably due to passed CBD stone. Pt being seen by surgery. MRCP is negative. Rec: GB Surgery as an outpatient
[2018-01-11] MEDS ORDERED: Ibuprofen 200 MG TABLET PO PRN (13:25)
[2018-01-11 16:01] VITALS: BP 97/63
--- NOTE | 2018-01-11 19:14 | Event Note ---
Date of Encounter: 01/11/18 Time of Encounter: 19:13 Patient opted to leave AMA and did not want to wait to be monitored overnight
== END 2018-01-11 18:06 | disposition left against medical advice (07) ==
LOC: EMEROOARM 18:51 → 2SOUTHHOLD 18:51
PROVIDERS: ADMIT Internal Medicine; ATTEND Pediatrics